=== PATIENT | male | born 1945 | race Caucasian/White ===

== ENCOUNTER 2017-02-25 22:48 | Emergency (ER) | payer BC, OTHER ==
--- NOTE | 2017-02-25 23:30 | EDPHY ---
H & P Stated Complaint: wants BP checked; hypertensive at home HPI/ROS: HPI CHIEF COMPLAINT: Hypertension HISTORY OF PRESENT ILLNESS: This patient very pleasant 71-year-old male, significant past medical history for hypertension just recently went up on his Coreg to 12.5 twice daily, additionally he takes HCTZ. Being followed by his primary care doctor for hypertension and additionally he was recently diagnosis with an enlarging thoracic aortic aneurysm of 4.8 cm. He is due to follow up with Cardiothoracic surgery later this month. He presents to the emergency room stating that he feels like his blood pressure is high. He noticed at 10: 00 p.m. tonight while he was trying to go to sleep. He has sensation in his chest that feels like palpitations. He denies chest pain or shortness of breath. Denies pleuritic pain. Denies dull ache or pressure. Denies arm numbness or tingling. Denies neck pain or back pain. Was lying in bed and felt some palpitations in his chest went downstairs to take his blood pressure and got a high reading at home decided come the emergency room. He reports to me otherwise he feels well. He denies chest pain or shortness of breath. Denies headache. Denies focal weakness numbness or tingling. Past Medical History: Hypertension, being followed for thoracic aortic aneurysm Past Surgical History: Hernia repair Social History: Denies daily use drugs alcohol tobacco. Family History: Noncontributory ROS REVIEW OF SYSTEMS: A comprehensive 10 point review of systems is otherwise negative aside from elements mentioned in the history of present illness. Exam Constitutional appears well nontoxic, anxious, triage nursing summary reviewed , vital signs reviewed, awake/alert. Vital signs noted at triage. Hypertensive. Eyes normal conjunctivae and sclera, EOMI, PERRLA. HENT normal inspection, atraumatic, moist mucus membranes, no epistaxis, neck supple/ no meningismus, no raccoon eyes. Respiratory clear to auscultation bilaterally, normal breath sounds, no respiratory distress, no wheezing. Cardiovascular no bruit. rate normal, regular rhythm, no murmur, no edema, distal pulses normal. Gastrointestinal soft, non-tender, no rebound, no guarding, normal bowel sounds, no distension, no pulsatile mass. Genitourinary no CVA tenderness. Musculoskeletal no midline vertebral tenderness, full range of motion, no calf swelling, no tenderness of extremities, no meningismus, good pulses, neurovascularly intact. Skin pink, warm, & dry, no rash, skin atraumatic. Neurologic awake, alert and oriented x 3, AAOx3, moves all 4 extremities equally, motor intact, sensory intact, CN II-XII intact, normal cerebellar, normal vision, normal speech. Psychiatric normal mood/affect. Heme/Lymph/Immune no lymphadenopathy. Differential Diagnosis: Includes but is not limited to in a particular order hypertensive urgency, hypertensive emergency, anxiety Medical Decision Making: Plan for this patient he otherwise appears well he does have hypertension here in emergency room. Decided after long discussion with him will obtain an EKG and basic blood work. And re-evaluate him with time and see if his blood pressure comes down. May have to give him an extra dose of blood pressure medication. I do believe thoracic aortic dissection is unlikely as he has no chest pain shortness of breath arm pain numbness or tingling or focal neck pain or weakness. Will obtain blood pressure in both arms. Re-evaluation: EKG interpretation by me on record in [employer] system. Impression time of EKG 0003 this is sinus rhythm rate of 55. Nonspecific T-wave abnormality seen in lead to [address] elevation or ST depression. 0107: Blood pressure 135/96. Lab work reviewed. Negative troponin. 0151AM: Repeat EKG time 1:34 a.m. this is sinus rhythm rate of 54 again seen nonspecific T-wave abnormalities in lead 3 and AVF. Flattening in lead 2. However no other acute ischemic changes. Unchanged from previous EKG this evening. This EKG is done when patient does not have any chest pain or shortness of breath. 0152: I did speak with Shantanu Ashraf the PA on-call for Dr. Digna Farnsworth. We went over this case in detail. Comfortable patient going home. Follow up with their office tomorrow. Additionally spoke with the patient understands return emergency room if develops chest pain shortness of breath or any further questions or concerns not feel well or spine and that his blood pressure is very high. Repeat troponin 2:22 a.m. negative. 0222: Re-evaluation resting comfortably no complaints up to use the bathroom without difficulty. Denies chest pain shortness of breath. Source: Patient - Personal History Current Tetanus/Diphtheria Vaccine: Yes - Medical/Surgical History Hx Asthma: No Hx Chronic Respiratory Disease: No Hx Diabetes: No Hx Cardiac Disease: No Hx Renal Disease: No Hx Cirrhosis: No Hx Alcoholism: No Hx HIV/AIDS: No Hx Splenectomy or Spleen Trauma: No Other PMH: PMHx: HTN, enlarged ascending aorta. PSHx: hernia repair, adenoids, tonsillectomy - Social History Smoking Status: Never smoked Constitutional: Initial Vital Signs Temperature (C) 36.7 C 02/25/17 22:51 Heart Rate 52 L 02/25/17 22:51 Respiratory Rate 16 02/25/17 22:51 Blood Pressure 175/99 H 02/25/17 22:51 O2 Sat (%) 92 02/25/17 22:51 O2 Delivery Mode Room Air Allergies/Adverse Reactions: hydrochlorothiazide [From Hyzaar] Allergy (Severe, Verified 12/28/09 10:03) UVULA SWELLING losartan potassium [From Hyzaar] Allergy (Severe, Verified 12/28/09 10:03) UVULA SWELLING Home Medications: Medication Instructions Recorded Welchol 02/25/17 ASPIRIN 02/25/17 Atorvastatin Calcium 02/25/17 Carvedilol 02/25/17 Ezetimibe 02/25/17 Fish Oil 1,000 mg Capsule 02/25/17 HCTZ (*) 02/25/17 VITAMIN D 02/25/17 Vitamin K 02/25/17 Medical Decision Making - Diagnostics Imaging Results: Imaging Impressions Chest X-Ray 02/25/17 23:51 Impression: Negative. - Data Points Laboratory Results: Laboratory Results 02/25/17 23:54 02/25/17 23:54 02/26/17 02/25/17 02/25/17 01:35 23:54 23:54 WBC RBC Hgb Hct MCV MCH MCHC RDW Plt Count MPV Neut % (Auto) Lymph % (Auto) [place] % (Auto) Eos % (Auto) Baso % (Auto) Nucleat RBC Rel Count Absolute Neuts (auto) Absolute Lymphs (auto) Absolute Monos (auto) Absolute Eos (auto) Absolute Basos (auto) Absolute Nucleated RBC Immature Gran % Immature Gran # D-Dimer < 0.27 ug/mLFEU ug/mLFEU (0.00-0.50) Sodium 141 mEq/L mEq/L (134-144) Potassium 3.9 mEq/L mEq/L (3.5-5.2) Chloride 104 mEq/L mEq/L (97-110) Carbon Dioxide 28 mEq/l mEq/l (22-31) Anion Gap 9 mEq/L mEq/L (8-16) BUN 17 mg/dL mg/dL (7-23) Creatinine 0.9 mg/dL mg/dL (0.7-1.3) Estimated GFR > 60 Glucose 91 mg/dL mg/dL (70-100) Calcium 9.4 mg/dL mg/dL (8.5-10.4) Troponin I < 0.012 ng/mL ng/mL < 0.012 ng/mL ng/mL (0.000-0.034) (0.000-0.034) NT-Pro-B Natriuret Pep 143 pg/mL H pg/mL (0-125) 02/25/17 23:54 WBC 5.33 10^3/uL 10^3/uL (3.80-9.50) RBC 4.64 10^6/uL 10^6/uL (4.40-6.38) Hgb 15.2 g/dL g/dL (13.7-17.5) Hct 42.3 % % (40.0-51.0) MCV 91.2 fL fL (81.5-99.8) MCH 32.8 pg pg (27.9-34.1) MCHC 35.9 g/dL g/dL (32.4-36.7) RDW 12.3 % % (11.5-15.2) Plt Count 216 10^3/uL 10^3/uL (150-400) MPV 9.3 fL fL (8.7-11.7) Neut % (Auto) 41.4 % % (39.3-74.2) Lymph % (Auto) 40.5 % % (15.0-45.0) [place] % (Auto) 14.3 % H % (4.5-13.0) Eos % (Auto) 3.2 % % (0.6-7.6) Baso % (Auto) 0.4 % % (0.3-1.7) Nucleat RBC Rel Count 0.0 % % (0.0-0.2) Absolute Neuts (auto) 2.21 10^3/uL 10^3/uL (1.70-6.50) Absolute Lymphs (auto) 2.16 10^3/uL 10^3/uL (1.00-3.00) Absolute Monos (auto) 0.76 10^3/uL 10^3/uL (0.30-0.80) Absolute Eos (auto) 0.17 10^3/uL 10^3/uL (0.03-0.40) Absolute Basos (auto) 0.02 10^3/uL 10^3/uL (0.02-0.10) Absolute Nucleated RBC 0.00 10^3/uL 10^3/uL (0-0.01) Immature Gran % 0.2 % % (0.0-1.1) Immature Gran # 0.01 10^3/uL 10^3/uL (0.00-0.10) D-Dimer Sodium Potassium Chloride Carbon Dioxide Anion Gap BUN Creatinine Estimated GFR Glucose Calcium Troponin I NT-Pro-B Natriuret Pep Medications Given: Discontinued Medications Sodium Chloride (Ns) 1,000 mls @ 0 mls/hr IV EDNOW ONE; Wide Open PRN Reason: Protocol Stop: 02/25/17 23:51 Last Admin: 02/26/17 00:02 Dose: 1,000 mls Departure - Departure Disposition: Home, Routine, Self-Care Clinical Impression: Hypertension Qualifiers: Hypertension type: unspecified Qualified Code(s): I10 - Essential (primary) hypertension Condition: Good Instructions: Hypertension (ED) Additional Instructions: 1. Follow up with your primary care doctor, call there tomorrow. 2. Return immediately to the emergency room if you develop worsening symptoms includes chest pain, shortness of breath, or if you find your blood pressure is very high. Referrals: Digna Hutchinson MD [Primary Care Provider] - As per Instructions
[2017-02-25] MEDS ORDERED: NS 1,000 ML IV ONE (23:50)
--- NOTE | 2017-02-26 00:05 | CPEKG ---
Heart Rate: 55 RR Interval: 1091 P-R Interval: 144 QRSD Interval: 94 QT Interval: 468 QTC Interval: 448 P [place]: 48 QRS [place]: -41 T Wave [place]: -21 EKG Severity - ABNORMAL ECG - EKG Impression: SINUS RHYTHM EKG Impression: LEFT AXIS DEVIATION EKG Impression: NONSPECIFIC T ABNORMALITIES, INFERIOR LEADS Electronically Signed By: Dominik Saucedo 26-Feb-2017 06:58:08
[2017-02-26 00:19] LABS: % IMMATURE GRANULYOCYTES 0.2 % (0.0-1.1); ABSOLUTE IMMATURE GRANULOCYTES 0.01 10^3/uL (0.00-0.10); ADD DIFF? NO; ADD MORPH? NO; ADD SCAN? NO; ATYPICAL LYMPHOCYTE FLAG 10 (0-99); FRAGMENT RBC FLAG 0 (0-99); HEMATOCRIT 42.3 % (40.0-51.0); HEMOGLOBIN 15.2 g/dL (13.7-17.5); LEFT SHIFT FLG 0 (0-99); LIPEMIA HEMOLYSIS FLAG 90 (0-99); MEAN CELL HEMOGLOBIN 32.8 pg (27.9-34.1); MEAN CELL HEMOGLOBIN CONCENTR. 35.9 g/dL (32.4-36.7); MEAN CELL VOLUME 91.2 fL (81.5-99.8); MEAN PLATELET VOLUME 9.3 fL (8.7-11.7); PLATELET CLUMPS FLAG 0 (0-99); PLATELET COUNT 216 10^3/uL (150-400); RED BLOOD CELL COUNT 4.64 10^6/uL (4.40-6.38); RED CELL DISTRIBUTION WIDTH 12.3 % (11.5-15.2)
[2017-02-26 00:32] LABS: ANION GAP 9 mEq/L (8-16); CALCIUM 9.4 mg/dL (8.5-10.4); CARBON DIOXIDE 28 mEq/l (22-31); CHLORIDE 104 mEq/L (97-110); CREATININE 0.9 mg/dL (0.7-1.3); GLOMERULAR FILTRATION RATE > 60; GLUCOSE 91 mg/dL (70-100); POTASSIUM 3.9 mEq/L (3.5-5.2); SODIUM 141 mEq/L (134-144)
[2017-02-26 00:42] LABS: TROPONIN I < 0.012 ng/mL (0.000-0.034)
--- NOTE | 2017-02-26 01:36 | CPEKG ---
Heart Rate: 54 RR Interval: 1111 P-R Interval: 152 QRSD Interval: 90 QT Interval: 464 QTC Interval: 440 P [place]: 51 QRS [place]: -42 T Wave [place]: -43 EKG Severity - ABNORMAL ECG - EKG Impression: SINUS RHYTHM EKG Impression: LEFT AXIS DEVIATION EKG Impression: NONSPECIFIC T ABNORMALITIES, INFERIOR LEADS Electronically Signed By: Dominik Saucedo 26-Feb-2017 06:58:08
[2017-02-26 02:52] VITALS: BP 152/111; PULSE 53; RESP 18; TEMP 98.2; O2SAT 94
== END 2017-02-26 02:51 | disposition home or self-care (01) ==
DX: I10 Essential (primary) hypertension (principal); E86.9 Volume depletion, unspecified; Z79.82 Long term (current) use of aspirin

== ENCOUNTER → 2017-03-06 | Outpatient (CLI) | payer OTHER, BC | LOC: BHFA 15:30 | PROVIDERS: ATTEND Internal Medicine Cardiovascular Disease | DX: I71.9 Aortic aneurysm of unspecified site, without rupture (principal) ==

== ENCOUNTER → 2017-03-06 | Outpatient (CLI) | payer BC, OTHER ==
[~2017-03-06] MED LIST: IOPAMIDOL (ISOVUE 370) 100 ML BTL IV ONE
== END ==
LOC: EEVIPCON 13:37 → FIMAGING 13:37
PROVIDERS: ATTEND Thoracic Surgery (Cardiothoracic Vascular Surgery)
DX: I71.9 Aortic aneurysm of unspecified site, without rupture (principal)
CPT/HCPCS: Q9967

== ENCOUNTER 2017-05-15 07:38 | Inpatient (IN) | payer OTHER, BC ==
[2017-05-15] MEDS ORDERED: NS 1,000 ML IV ONE (07:44)
[2017-05-15] MEDS ORDERED: ASPIRIN EC 325 MG TAB PO ONE ×2 (07:44→08:01)
[2017-05-15] MEDS ORDERED: DIAZEPAM 5 MG TAB PO ONE (07:44)
[2017-05-15] MEDS ORDERED: diphenhydrAMINE 25 MG CAP PO ONE ×2 (07:44→08:00)
[2017-05-15] MEDS ORDERED: FAMOTIDINE 20 MG TAB PO ONE (07:44)
[2017-05-15] MEDS ORDERED: FAMOTIDINE 20 MG TAB ONE (08:00)
[2017-05-15] MEDS ORDERED: DIAZEPAM 5 MG TAB ONE (08:01)
--- NOTE | 2017-05-15 08:08 | CPEKG ---
Heart Rate: 56 RR Interval: 1071 P-R Interval: 140 QRSD Interval: 84 QT Interval: 432 QTC Interval: 417 P [place]: 54 QRS [place]: -46 T Wave [place]: -17 EKG Severity - ABNORMAL ECG - EKG Impression: SINUS RHYTHM EKG Impression: LAD, CONSIDER LEFT ANTERIOR FASCICULAR BLOCK EKG Impression: BORDERLINE T ABNORMALITIES, INFERIOR LEADS Electronically Signed By: Shantanu Gonzalez 17-May-2017 12:29:14
[2017-05-15 08:30] LABS: PLATELET COUNT 210 10^3/uL (150-400)
[2017-05-15 08:41] LABS: INR 1.04 (0.83-1.16); PROTIME(PATIENT) 13.8 SEC (12.0-15.0)
[2017-05-15] MEDS ORDERED: MIDAZOLAM 2 MG/2 ML VIAL ONE (08:53)
[2017-05-15] MEDS ORDERED: HEPARIN 10,000 UNIT/10 ML MDV (1,000 UNIT/ML) ONE (08:53)
[2017-05-15] MEDS ORDERED: fentaNYL 100 MCG/2 ML INJ ONE (08:53)
[2017-05-15] MEDS ORDERED: LIDOCAINE 1% 300 MG/30 ML SDV ONE (08:53)
[2017-05-15] MEDS ORDERED: VERAPAMIL 5 MG/2 ML VIAL ONE (08:53)
[2017-05-15] MEDS ORDERED: IOPAMIDOL (ISOVUE-370) 150 ML BTL IV ONE (08:54)
--- NOTE | 2017-05-15 08:55 | PDPROPOC ---
Sedation Plan of Care Sedation Plan of Care: vital signs stable, mental status noted, patient educated of risks, benefits, alternatives, patient can tolerate sedation ASA Classification: ASA 2 Planned drugs: fentanyl, midazolam Mallampati Score: Class 1 Mallampati Reference Image: Patient passed 3-3-2 rule?: Yes
--- NOTE | 2017-05-15 08:56 | PDHPUP ---
History & Physical Update H&P update statement: This history and physical update is based on an assessment of the patient which was completed after admission or registration (within 24 hours), but prior to the surgery/procedure. H&P update: H&P reviewed & patient examined, no change in patient's condition since H&P completed
--- NOTE | 2017-05-15 09:17 | PDGENHP ---
History & Physical Chief Complaint: Preop History of Present Illness: 71-year-old male here in preoperative assessment for thoracic aortic aneurysm repair. Request for coronary assessment. Pertinent Past, Social, Family History: None Relevant Physical Exam: Well-nourished well-developed male. No JVP. Chest clear to auscultation percussion. Cardiac exam revealed a regular rate and rhythm with a 2/6 systolic murmur. Radial pulses were +2 and equal negative Edgar's test. Extremities revealed no edema. Cardiorespiratory Assessment: No contraindications to proceeding with cardiac catheterization identified today. Procedure to be performed is diagnostic only for assessment prior to surgery. Risks and benefits were discussed with the patient his and daughter. Will proceed.
--- NOTE | 2017-05-15 10:11 | PDDXCAT ---
Diagnostic Cath Note - . Date: 05/15/17 Entrance Guard: Sanju Indication: other (Preoperative thoracic aortic aneurysm repair) - Procedure Access: left wrist Procedure: left heart catheterization, coronary angiography, left ventriculogram - Materials Left Heart Cath size: 5F Left Heart Cath materials: JL4.5, JR4.0, pigtail - Findings-Left Heart Catheterization LM: Unobstructed LAD: Luminal irregularities: Unobstructed LCX: Luminal irregularities: Unobstructed RCA: Dominant: Luminal irregularities unobstructed EDP: 13 mm of mercury LVEF: 65 with aortic root dilatation Wall motion: Normal Complications: None Estimated blood loss: <50ml Closure method: TR Band Assessment: Contrast: 100 cc. Radiation 89 mGy. Versed 3 mg, fentanyl 75 mcg. Conclusions: Mild nonobstructive atherosclerotic cardiovascular disease. Normal LV systolic function. Thoracic aortic aneurysm. Plan: Surgical repair.
[2017-05-15] MEDS ORDERED: ATROPINE SULFATE 1 MG/10 ML SYR IVP PRN (10:12)
[2017-05-15] MEDS ORDERED: NITROGLYCERIN 0.4 MG BTL SL PRN (10:12)
--- NOTE | 2017-05-15 12:52 | PDGENHP ---
History and Physical - Chief Complaint asc ao aneurysm 4.8 cm - History of Present Illness 71 with asc ao aneurysm of 4.8 cm, mild AI, and normal LVEF, admitted in advance of repair for risk stratification. LHC was completed today which revealed non-obstructive CAD. Pt denies weakness, pre-syncope, syncope, CP, chest palpitations, SOB, abdominal pain, or LE edema. History Information - Allergies/Home Medication List Allergies/Adverse Reactions: lisinopril Allergy (Verified 04/22/17 10:13) cough losartan potassium [From Hyzaar] Allergy (Verified 04/22/17 10:13) UVULA SWELLING Home Medications: Amlodipine Besylate [Norvasc] 5 mg PO DAILY 05/11/17 [Last Taken 05/14/17 08:00] Aspirin EC [Aspirin EC 81 mg (*)] 81 mg PO DAILY 05/11/17 [Last Taken 05/14/17 08:00] Atorvastatin Calcium [Lipitor 10 mg (*)] 10 mg PO DAILY 05/11/17 [Last Taken 09/23 21:00] Carvedilol [Coreg (*)] 25 mg PO BIDMEAL 05/11/17 [Last Taken 05/14/17 21:00] Colesevelam HCl [Welchol (*)] 1,875 mg PO BIDMEAL 05/11/17 [Last Taken 05/14/17 21:00] Ezetimibe [Ezetimibe] 10 mg PO DAILY 05/11/17 [Last Taken 05/14/17 08:00] Herbals/Supplements -Info Only 1 ea PO DAILY 05/11/17 [Last Taken 05/08/17 08:00 ] Hydrochlorothiazide [HCTZ (*)] 25 mg PO DAILY 05/11/17 [Last Taken 05/14/17 08: 00] I have personally reviewed and updated: family history, medical history, social history, surgical history - Past Medical History hypertension, hyperlipidemia - Surgical History Reports: no pertinent surgical hx - Social History Smoking Status: Never smoked Alcohol Use: Rarely Drug Use: None Review of Systems Review of Systems: ROS: 2-9 pt reviewed & negative except for what was stated in HPI & below Physical Exam Physical Exam: Constitutional: no apparent distress, appears nourished, not in pain Eyes: anicteric sclera Ears, Nose, Mouth, Throat: moist mucous membranes, hearing normal Cardiovascular: no murmur, rub, or gallop Respiratory: no respiratory distress, no rales or rhonchi, clear to auscultation Gastrointestinal: soft, non-tender abdomen Genitourinary: no bladder tenderness Skin: warm, normal color Musculoskeletal: full muscle strength Neurologic: AAOx3, sensation intact bilaterally Psychiatric: interacting appropriately, not anxious, not encephalopathic, thought process linear Lab Data & Imaging Review 05/15/17 08:00 05/15/17 08:00 WBC 4.77 10^3/uL (3.80-9.50) 05/15/17 08:00 RBC 4.75 10^6/uL (4.40-6.38) 05/15/17 08:00 Hgb 15.3 g/dL (13.7-17.5) 05/15/17 08:00 Hct 43.0 % (40.0-51.0) 05/15/17 08:00 MCV 90.5 fL (81.5-99.8) 05/15/17 08:00 MCH 32.2 pg (27.9-34.1) 05/15/17 08:00 MCHC 35.6 g/dL (32.4-36.7) 05/15/17 08:00 RDW 12.0 % (11.5-15.2) 05/15/17 08:00 Plt Count 210 10^3/uL (150-400) 05/15/17 08:00 MPV 9.5 fL (8.7-11.7) 05/15/17 08:00 Neut % (Auto) 54.3 % (39.3-74.2) 05/15/17 08:00 Lymph % (Auto) 27.9 % (15.0-45.0) 05/15/17 08:00 [place] % (Auto) 14.3 % (4.5-13.0) H 05/15/17 08:00 Eos % (Auto) 2.1 % (0.6-7.6) 05/15/17 08:00 Baso % (Auto) 0.8 % (0.3-1.7) 05/15/17 08:00 Nucleat RBC Rel Count 0.0 % (0.0-0.2) 05/15/17 08:00 Absolute Neuts (auto) 2.59 10^3/uL (1.70-6.50) 05/15/17 08:00 Absolute Lymphs (auto) 1.33 10^3/uL (1.00-3.00) 05/15/17 08:00 Absolute Monos (auto) 0.68 10^3/uL (0.30-0.80) 05/15/17 08:00 Absolute Eos (auto) 0.10 10^3/uL (0.03-0.40) 05/15/17 08:00 Absolute Basos (auto) 0.04 10^3/uL (0.02-0.10) 05/15/17 08:00 Absolute Nucleated RBC 0.00 10^3/uL (0-0.01) 05/15/17 08:00 Immature Gran % 0.6 % (0.0-1.1) 05/15/17 08:00 Immature Gran # 0.03 10^3/uL (0.00-0.10) 05/15/17 08:00 PT 13.8 SEC (12.0-15.0) 05/15/17 08:00 INR 1.04 (0.83-1.16) 05/15/17 08:00 Sodium 140 mEq/L (135-145) 05/15/17 08:00 Potassium 4.2 mEq/L (3.5-5.2) 05/15/17 08:00 Chloride 103 mEq/L (97-110) 05/15/17 08:00 Carbon Dioxide 27 mEq/l (22-31) 05/15/17 08:00 Anion Gap 10 mEq/L (8-16) 05/15/17 08:00 BUN 14 mg/dL (7-23) 05/15/17 08:00 Creatinine 0.9 mg/dL (0.7-1.3) 05/15/17 08:00 Estimated GFR > 60 05/15/17 08:00 Glucose 90 mg/dL (70-100) 05/15/17 08:00 Calcium 9.8 mg/dL (8.5-10.4) 05/15/17 08:00 Magnesium 2.0 mg/dL (1.6-2.3) 05/15/17 08:00 Triglycerides 119 mg/dL (40-150) 05/15/17 08:00 Cholesterol 151 mg/dL (140-220) 05/15/17 08:00 Cholesterol Risk Factr 0.4 (0.2-1.0) 05/15/17 08:00 LDL Cholesterol, Calc 62 mg/dL (80-100) L 05/15/17 08:00 LDL Risk Factor 0.5 (0.2-1.0) 05/15/17 08:00 VLDL Cholesterol 23 mg/dL (8-25) 05/15/17 08:00 Non-HDL Cholesterol 85 mg/dL (90-129) L 05/15/17 08:00 HDL Cholesterol 66 mg/dL (40-65) H 05/15/17 08:00 LDL/HDL Ratio 0.94 RATIO (1.00-3.64) L 05/15/17 08:00 Cholesterol/HDL Ratio 2.29 RATIO (1.00-4.97) 05/15/17 08:00 Patient ABO/Rh B POSITIVE 05/15/17 08:00 Antibody Screen NEGATIVE 05/15/17 08:00 Visualized and Interpreted Chest x-ray results: Yes Chest X-Ray results: no infiltrate, normal heart size, other (tortuous thoracic aorta) Visualized and Interpreted EKG results: Yes EKG Interpretation: Positive for: normal sinsus rhythm Assessment & Plan Assessment: 71M with asc ao aneurysm of 4.8 cm Plan: aneurysm repair 05/16
[2017-05-15] MEDS: CARVEDILOL 25 MG TAB PO SCH (18:05)
[2017-05-15] MEDS: COLESEVELAM HCL 625 MG TAB PO SCH (18:05)
[2017-05-15] MEDS ORDERED: CHLORHEXIDINE GLUC HIBICLENS 118 ML BTL TP ONE (19:34)
[2017-05-16] MEDS ORDERED: PHENYLEPHRINE HCL 50 MG in NS 250 ML IV ONE (06:00)
[2017-05-16] MEDS ORDERED: LIDOCAINE 1% 5 ML SDV ID PRN (06:00)
[2017-05-16] MEDS ORDERED: SODIUM BICARBONATE 20 MEQ, LIDOCAINE 1% 10 ML in NORMOSOL-R 1,000 ML MISC ONE (06:00)
[2017-05-16] MEDS ORDERED: MANNITOL 25% 12.5 GM/50 ML VIAL IVP ONE (06:00)
[2017-05-16] MEDS ORDERED: CITRATE DEXTROSE SOLN 500 ML BAG MISC ONE (06:00)
[2017-05-16] MEDS ORDERED: INSULIN REGULAR HUMAN 100 UNIT in NS 100 ML IV ONE (06:00)
[2017-05-16] MEDS ORDERED: NOREPINEPHRINE BITARTRATE 16 MG in NS 250 ML IV ONE (06:00)
[2017-05-16] MEDS ORDERED: MUPIROCIN 2% 22 GM OINT NS ONE (06:00)
[2017-05-16] MEDS ORDERED: CHLORHEXIDINE GLUC HIBICLENS 118 ML BTL TP SCH (06:00)
[2017-05-16] MEDS ORDERED: ceFAZolin 2 GM/SWFI 2 GM/20 ML SYR IVP ONE (06:00)
[2017-05-16] MEDS ORDERED: niCARdipine/NACL 200 ML IV SCH (06:00)
[2017-05-16] MEDS ORDERED: TRANEXAMIC ACID 1,000 MG in NS (SYRINGE) 50 ML IV ONE (06:00)
[2017-05-16] MEDS ORDERED: PROTAMINE SULFATE 50 MG/5 ML VIAL IVP ONE (06:32)
[2017-05-16] MEDS ORDERED: CALCIUM CHLORIDE 1 GM/10 ML INJ ONE ×3 (06:33→11:01)
[2017-05-16] MEDS ORDERED: MILRINONE/DEXTROSE/100 ML BAG IV ONE (06:33)
[2017-05-16] MEDS ORDERED: ALBUMIN 5% 250 ML BOTTLE IV ONE (06:33)
[2017-05-16] MEDS ORDERED: HEPARIN 10,000 UNIT/10 ML MDV (1,000 UNIT/ML) ONE (06:33)
[2017-05-16] MEDS ORDERED: LIDOCAINE 2% 100 MG/5 ML SYR ONE ×2 (06:33→08:22)
[2017-05-16] MEDS ORDERED: NA BICARBONATE 50 MEQ/50 ML VIAL ONE (06:33)
[2017-05-16] MEDS ORDERED: methylPREDNISolone SOD SUCC 1 GM/8 ML VIAL ONE (06:34)
[2017-05-16] MEDS ORDERED: MAGNESIUM SULFATE 1 GM/2 ML VIAL ONE (06:34)
[2017-05-16] MEDS ORDERED: ADENOSINE 6 MG/2 ML VIAL ONE (06:34)
[2017-05-16] MEDS ORDERED: DOPamine/DEXTROSE/250 ML BAG IV ONE (06:34)
[2017-05-16] MEDS ORDERED: CITRATE DEXTROSE SOLN 500 ML BAG ONE (06:34)
[2017-05-16] MEDS ORDERED: niCARdipine/NACL/200 ML BAG IV ONE (06:34)
[2017-05-16] MEDS ORDERED: AMIODARONE HCL 150 MG/3 ML VIAL ONE (06:34)
[2017-05-16] MEDS ORDERED: ceFAZolin 1 GM VIAL ONE (06:34)
[2017-05-16] MEDS ORDERED: LR 1,000 ML IV ONE (06:38)
[2017-05-16] MEDS ORDERED: MIDAZOLAM 2 MG/2 ML VIAL IVP ONE (07:20)
[2017-05-16] MEDS ORDERED: MINERAL OIL 10 ML VIAL ONE (07:21)
--- NOTE | 2017-05-16 08:04 | PDANEPAE ---
ANE History of Present Illness Ascending Aortic Aneurism Repair s/f repair ANE Past Medical History - Cardiovascular History Hx Hypertension: Yes Hx Arrhythmias: No Hx Chest Pain: No Hx Coronary Artery / Peripheral Vascular Disease: No Hx CHF / Valvular Disease: Yes Hx Palpitations: No Cardiovascular History Comment: htn. hyperlipidemia. AAA. mild AI - Pulmonary History Hx COPD: No Hx Asthma/Reactive Airway Disease: No Hx Recent Upper Respiratory Infection: No Hx Oxygen in Use at Home: No Hx Sleep Apnea: Yes Sleep Apnea Screening Result - Last Documented: Positive Pulmonary History Comment: mild ulises- doesn't use any devices - Neurologic History Hx Cerebrovascular Accident: No Hx Seizures: No Hx Dementia: No - Endocrine History Hx Diabetes: No - Renal History Hx Renal Disorders: No - Liver History Hx Hepatic Disorders: No - Neurological & Psychiatric Hx Hx Neurological and Psychiatric Disorders: No - Cancer History Hx Cancer: No - Congenital Disorder History Hx Congenital Disorders: No - GI History Hx Gastrointestinal Disorders: Yes Gastrointestinal History Comment: mild constipation at times - Other Health History Other Health History: wears reading glasses - Chronic Pain History Chronic Pain: No - Surgical History Prior Surgeries: 12/30/09 lap inguinal hernia repair with [facility]. T&A as child ANE Review of Systems Review of Systems: - Exercise capacity METS (RN): 4 METS ANE Patient History - Allergies Allergies/Adverse Reactions: lisinopril Allergy (Verified 05/16/17 06:30) cough losartan potassium [From Hyzaar] Allergy (Verified 05/16/17 06:30) UVULA SWELLING - Home Medications Home medications: home medication list seen and reviewed Home Medications: Amlodipine Besylate [Norvasc] 5 mg PO DAILY 05/11/17 [Last Taken 05/14/17 08:00] Aspirin EC [Aspirin EC 81 mg (*)] 81 mg PO DAILY 05/11/17 [Last Taken 05/14/17 08:00] Atorvastatin Calcium [Lipitor 10 mg (*)] 10 mg PO DAILY 05/11/17 [Last Taken 09/23 21:00] Carvedilol [Coreg (*)] 25 mg PO BIDMEAL 05/11/17 [Last Taken 05/14/17 21:00] Colesevelam HCl [Welchol (*)] 1,875 mg PO BIDMEAL 05/11/17 [Last Taken 05/14/17 21:00] Ezetimibe [Ezetimibe] 10 mg PO DAILY 05/11/17 [Last Taken 05/14/17 08:00] Herbals/Supplements -Info Only 1 ea PO DAILY 05/11/17 [Last Taken 05/08/17 08:00 ] Hydrochlorothiazide [HCTZ (*)] 25 mg PO DAILY 05/11/17 [Last Taken 05/14/17 08: 00] - NPO status NPO Status: no food or drink >8 hours NPO Since - Liquids (Date): 05/16/17 NPO Since - Liquids (Time): 00:00 NPO Since - Solids (Date): 05/16/17 NPO Since - Solids (Time): 00:00 - Anes Hx Anes Hx: post operative nausea and vomiting (with ether, none recent) - Smoking Hx Smoking Status: Never smoked - Alcohol Use Alcohol Use: Rarely - Family Anes Hx Family Hx Anesthesia Complications: none ANE Labs/Vital Signs - Labs Result Diagrams: 05/15/17 08:00 05/15/17 08:00 - Vital Signs Blood Pressure: 136/91 Heart Rate: 58 Respiratory Rate: 16 O2 Sat (%): 93 Height: 170 cm Weight: 80.8 kg ANE Physical Exam - Airway Mallampati Score: Class 3 Mouth exam: normal dental/mouth exam - Pulmonary Pulmonary: no respiratory distress - Cardiovascular Cardiovascular: regular rate and rhythym - ASA Status ASA Status: II ANE Anesthesia Plan Anesthesia Plan: general endotracheal anesthesia Lines/Monitors: arterial line, central line, ESAU
[2017-05-16] MEDS ORDERED: PHENYLEPHRINE HCL 100 MCG/ML SYR ONE (08:21)
[2017-05-16] MEDS ORDERED: MIDAZOLAM 2 MG/2 ML VIAL ONE (08:21)
[2017-05-16] MEDS ORDERED: REMIFENTANIL HCL 1 MG VIAL ONE (08:21)
[2017-05-16] MEDS ORDERED: PROPOFOL/EMULSION 500 MG/50 ML BOTTLE IV ONE (08:21)
[2017-05-16] MEDS ORDERED: fentaNYL 250 MCG/5 ML INJ ONE (08:21)
[2017-05-16] MEDS ORDERED: ROCURONIUM 100 MG/10 ML VIAL ONE (08:22)
[2017-05-16] MEDS ORDERED: LIDOCAINE HCL 160 MG/4 ML LTA KIT TP ONE (08:23)
[2017-05-16] MEDS: CARVEDILOL 25 MG TAB PO SCH (09:33)
[2017-05-16] MEDS ORDERED: DEXMEDETOMIDINE/NS 4MCG/ML 50 ML BTL IV ONE (09:36)
[2017-05-16] MEDS: COLESEVELAM HCL 625 MG TAB PO SCH (09:41)
[2017-05-16] MEDS ORDERED: fentaNYL 25 MCG PATCH TD SCH (09:45)
[2017-05-16] MEDS ORDERED: DEXAMETHASONE 4 MG/ML VIAL ONE ×2 (09:48)
[2017-05-16] MEDS ORDERED: KETOROLAC 30 MG/1 ML SDV ONE (09:48)
[2017-05-16] MEDS ORDERED: ONDANSETRON 4 MG/2 ML VIAL ONE (09:48)
[2017-05-16] MEDS ORDERED: SUGAMMADEX SODIUM 200 MG/2 ML VIAL IVP ONE (10:47)
[2017-05-16] MEDS ORDERED: DEXMEDETOMIDINE IN 0.9 % NACL 50 ML IV SCH (11:00)
[2017-05-16] MEDS ORDERED: MEPERIDINE 25 MG/ML SYR IVP PRN (11:19)
[2017-05-16] MEDS ORDERED: SODIUM CL NASAL 45 ML BTL EACHNARE PRN (11:19)
[2017-05-16] MEDS ORDERED: ONDANSETRON DISINTEGRATING 4 MG TAB PO PRN (11:19)
[2017-05-16] MEDS ORDERED: ACETAMINOPHEN 325 MG TAB PO PRN (11:19)
[2017-05-16] MEDS ORDERED: BISACODYL 10 MG SUPP PR PRN (11:19)
[2017-05-16] MEDS ORDERED: METOCLOPRAMIDE 10 MG/2 ML VIAL IVP PRN (11:19)
[2017-05-16] MEDS ORDERED: ACETAMINOPHEN 650 MG SUPP PR PRN (11:19)
[2017-05-16] MEDS ORDERED: CEPACOL LOZENGE PO PRN (11:19)
[2017-05-16] MEDS ORDERED: MAGNESIUM SULF 2 GM/WATER 50 ML IV ONE (11:19)
[2017-05-16] MEDS ORDERED: PANTOPRAZOLE SODIUM 40 MG VIAL IVP ONE (11:19)
[2017-05-16] MEDS ORDERED: D50W 25 GM/50 ML SYR IVP PRN (11:19)
[2017-05-16] MEDS ORDERED: LACTULOSE 20 GM/30 ML UDCUP PO PRN (11:19)
[2017-05-16] MEDS ORDERED: NS 1,000 ML IV SCH (11:30)
[2017-05-16] MEDS ORDERED: INSULIN REGULAR HUMAN 100 UNIT in NS 100 ML IV SCH (11:30)
[2017-05-16] MEDS ORDERED: HYDROGEN PEROXIDE 236 ML BOTTLE TP ONE (11:39)
[2017-05-16] MEDS: ALBUMIN 5% 250 ML IV PRN ×2 (12:00→12:50)
[2017-05-16] MEDS: ceFAZolin 2 GM/DEXTROSE 100 ML IV SCH ×2 (12:34→22:08)
[2017-05-16] MEDS: KETOROLAC 15 MG/1 ML SDV IVP SCH ×3 (12:34→23:53)
[2017-05-16] MEDS ORDERED: ALBUMIN 5% 500 ML BOTTLE IV ONE (12:56)
[2017-05-16] MEDS: fentaNYL 100 MCG/2 ML INJ IVP PRN (13:10)
[2017-05-16] MEDS ORDERED: ALBUMIN 5% 500 ML IV ONE (13:30)
[2017-05-16] MEDS: POTASSIUM Cl (KCl) 50 ML IV PRN ×4 (14:30→16:57)
[2017-05-16] MEDS: ONDANSETRON 4 MG/2 ML VIAL IVP PRN (17:38)
--- NOTE | 2017-05-16 21:29 | POSTANESTH ---
Post Anesthetic Evaluation Cardiovascular Status: Normal, Stable, Similar to Pre-Op Cond Respiratory Status: Tx Decrease in SpO2 (3l by NC) Level of Consciousness/Mental Status: Alert and Oriented, Mildly Sleepy, Arousable Pain Control: Adequate, Prn Tx Ordered Nausea/Vomiting Control: Adequate, Prn Tx Ordered Complications Possibly Related to Anesthesia: None Noted
[2017-05-16] MEDS: MUPIROCIN 2% 22 GM OINT NS SCH (22:10)
[2017-05-17] MEDS: fentaNYL 100 MCG/2 ML INJ IVP PRN (01:44)
[2017-05-17] MEDS: HYDROCODONE/APAP 5/325 TAB PO PRN ×3 (03:57→21:31)
[2017-05-17 04:10] LABS: PLATELET COUNT 119 10^3/uL (150-400)
[2017-05-17] MEDS: HEPARIN 5,000 UNIT/0.5 ML SYR SC SCH ×3 (06:14→21:12)
[2017-05-17] MEDS: KETOROLAC 15 MG/1 ML SDV IVP SCH ×3 (06:14→18:39)
[2017-05-17] MEDS: ceFAZolin 2 GM/DEXTROSE 100 ML IV SCH ×2 (06:14→14:44)
--- NOTE | 2017-05-17 06:40 | SOAPPROG ---
SOAP Progress Note Assessment/Plan: Assessment: POD#1 Ascending aortic replacement #28 hemashield graft, prophylactic AtriClip ligation left atrial appendage Aneurysmal ascending aorta - Replaced with a dacron interposition graft. Extubated in the OR. Hemodynamically stable early postop course. No vasoactive support, tachyarrhythmias, backup pacing or significant fluid overload. AF prophylaxis with BB as tolerated. Antithrombotic prophylaxis with ASA alone pending stability of rhythm. Acute expected blood loss anemia - Stable. No transfusions required. VTE prophylaxis with SQ hep. Plan: Routine POD#1 orders re drains, wires, lines, orals and mobility. Tx to PCU. 05/17/17 06:37 Subjective: Feels great. Minimal discomfort. No dizziness OOB. Thirsty. Looking forward to PT. Objective: Vital Signs Temp Pulse Resp BP Pulse Ox 36.6 C 70 21 H 123/84 H 97 05/16/17 20:00 05/17/17 06:00 05/17/17 06:00 05/17/17 06:00 05/17/17 06:00 Laboratory Results 05/17/17 04:00 05/17/17 04:00 05/16/17 05/17/17 05/18/17 05:59 05:59 05:59 Intake Total 1950 1830 Output Total 402 3095 Balance 1548 -1265 PT 13.8 SEC (12.0-15.0) 05/15/17 08:00 INR 1.04 (0.83-1.16) 05/15/17 08:00 No gtts. No tachycardia or backup pacing. MAPs > 70. Excellent sats on 3 lpm O2. CTOP dissipating. CXR -> No PTX, min pulm vasc congestion, bilateral basilar atelectasis. Adequate fluid balance. Labs as expected. Physical Exam - Physical Exam General Appearance: alert, no apparent distress Respiratory: lungs clear (grossly), other (blakes y-d to pleurovac, serosang drainage, no air leak) Cardiac/Chest: regular rate, rhythm, other (Sternotomy CDI. Vwires intact.) Abdomen: normal bowel sounds, non-tender, soft Skin: warm/dry Extremities: other (no visible edema) ICD10 Worksheet Patient Problems: Problems Problem Status Onset Acute blood loss anemia Acute Aneurysm of ascending aorta Acute S/P ascending aortic replacement Acute ~05/16/17
[2017-05-17] MEDS ORDERED: traMADol 50 MG TAB PO PRN (08:04)
[2017-05-17] MEDS: PANTOPRAZOLE SODIUM 40 MG TAB PO SCH (08:07)
[2017-05-17] MEDS: SENNOSIDES/DOCUSATE SODIUM TAB PO SCH ×2 (08:07→21:13)
[2017-05-17] MEDS: ASPIRIN EC 81 MG TAB PO SCH (08:07)
[2017-05-17] MEDS: MUPIROCIN 2% 22 GM OINT NS SCH ×2 (08:08→22:11)
[2017-05-17] MEDS: METOPROLOL TARTRATE 25 MG TAB PO SCH ×2 (10:44→21:13)
[2017-05-17] MEDS: ceFAZolin 2 GM/SWFI 2 GM/20 ML SYR IVP SCH ×2 (14:43→21:29)
--- NOTE | 2017-05-17 15:59 | ASMTCMCOM ---
CM Note CM Note Notes: 05/17/2017 Case management Note Reviewed chart and discussed with Dr. Margarette Etienne's PA. There are no anticipated case management d/c needs. PT is recommending home. Case Management d/c poc; home with follow up as directed. Case Management available if needs change. Date Signed: 05/17/2017 03:59 PM Electronically Signed By:Rosa Robins RN
[2017-05-17] MEDS ORDERED: SENNOSIDES/DOCUSATE SODIUM TAB PO SCH (21:00)
[2017-05-17] MEDS: IBUPROFEN 600 MG TAB PO PRN (21:31)
[2017-05-18] MEDS: HEPARIN 5,000 UNIT/0.5 ML SYR SC SCH (05:47)
[2017-05-18 06:04] LABS: PLATELET COUNT 95 10^3/uL (150-400)
--- NOTE | 2017-05-18 08:14 | SOAPPROG ---
SOAP Progress Note Assessment/Plan: Assessment: POD#2 Ascending aortic replacement #28 hemashield graft, prophylactic AtriClip ligation left atrial appendage Aneurysmal ascending aorta - Replaced with a dacron interposition graft. Extubated in the OR. Hemodynamically stable early postop course. No vasoactive support, tachyarrhythmias, backup pacing or significant fluid overload. AF prophylaxis with BB as tolerated. Antithrombotic prophylaxis with ASA alone pending stability of rhythm. Acute expected blood loss anemia - Stable. No transfusions required. VTE prophylaxis with SQ hep. Plan: Chest tubes and Vwires removed. D/C duragesic patch. Cont metop 12.5 mg BID. Switch scheduled toradol to prn ibuprofen. Cont inc activity as tolerated. Dispo - Anticipate home without services 05/18/17 08:12 Subjective: Euphoria of yest gone. Tired. Poor sleep. Intermittent nausea and sweats. Anticipating BM. Objective: Vital Signs Temp Pulse Resp BP Pulse Ox 36.9 C 67 16 115/76 97 05/18/17 04:00 05/18/17 04:00 05/18/17 04:00 05/18/17 04:00 05/18/17 04:00 Laboratory Results 05/18/17 05:50 05/18/17 05:50 05/17/17 05/18/17 05/19/17 05:59 05:59 05:59 Intake Total 1830 1775 Output Total 3095 1098 Balance -1265 677 PT 13.8 SEC (12.0-15.0) 05/15/17 08:00 INR 1.04 (0.83-1.16) 05/15/17 08:00 Holding SR and SBPs > 100. Stable suppl O2 req. Cont to autodiurese well. CTOP at removal criteria. Labs ok. Physical Exam - Physical Exam General Appearance: alert, no apparent distress Respiratory: crackles (coarse left sided), other (blakes x 2 to bulb suction, thin serosang drainage; both drains removed without incident) Cardiac/Chest: regular rate, rhythm, other (Sternotomy CDI. Vwires removed without difficulty.) Abdomen: non-tender, soft Skin: warm/dry Extremities: swelling (trace) ICD10 Worksheet Patient Problems: Problems Problem Status Onset Acute blood loss anemia Acute Aneurysm of ascending aorta Acute S/P ascending aortic replacement Acute ~02/08/18
[2017-05-18] MEDS: POLYETHYLENE GLYCOL 3350 17 GM PKT PO PRN (09:05)
[2017-05-18] MEDS: SENNOSIDES/DOCUSATE SODIUM TAB PO SCH ×2 (09:07→19:54)
[2017-05-18] MEDS: METOPROLOL TARTRATE 25 MG TAB PO SCH ×2 (09:07→19:55)
[2017-05-18] MEDS: PANTOPRAZOLE SODIUM 40 MG TAB PO SCH (09:08)
[2017-05-18] MEDS: IBUPROFEN 600 MG TAB PO PRN ×2 (09:08→20:33)
[2017-05-18] MEDS: ASPIRIN EC 81 MG TAB PO SCH (09:09)
[2017-05-18] MEDS: MUPIROCIN 2% 22 GM OINT NS SCH (10:24)
[2017-05-18] MEDS: ONDANSETRON 4 MG/2 ML VIAL IVP PRN ×2 (13:55→19:55)
[2017-05-18] MEDS: COLESEVELAM HCL 625 MG TAB PO SCH (19:55)
[2017-05-18] MEDS: TEMAZEPAM 15 MG CAP PO PRN (20:34)
[2017-05-19] MEDS: MAGNESIUM HYDROXIDE 30 ML UDCUP PO PRN (07:50)
[2017-05-19] MEDS: SENNOSIDES/DOCUSATE SODIUM TAB PO SCH ×2 (07:50→21:05)
[2017-05-19] MEDS: IBUPROFEN 600 MG TAB PO PRN ×2 (07:51→20:38)
[2017-05-19] MEDS: METOPROLOL TARTRATE 25 MG TAB PO SCH ×2 (07:52→21:05)
[2017-05-19] MEDS: ASPIRIN EC 81 MG TAB PO SCH (07:52)
[2017-05-19] MEDS: PANTOPRAZOLE SODIUM 40 MG TAB PO SCH (07:54)
[2017-05-19] MEDS: ATORVASTATIN CALCIUM 10 MG TAB PO SCH (07:55)
[2017-05-19] MEDS: EZETIMIBE 10 MG TAB PO SCH (07:55)
[2017-05-19] MEDS: COLESEVELAM HCL 625 MG TAB PO SCH ×2 (07:56→18:02)
--- NOTE | 2017-05-19 08:25 | SOAPPROG ---
SOAP Progress Note Assessment/Plan: Assessment: POD#3 Ascending aortic replacement #28 hemashield graft, prophylactic AtriClip ligation left atrial appendage Aneurysmal ascending aorta - Replaced with a dacron interposition graft. Extubated in the OR. Hemodynamically stable early postop course. No vasoactive support, tachyarrhythmias, backup pacing or significant fluid overload. AF prophylaxis with BB as tolerated. Antithrombotic prophylaxis with ASA alone pending stability of rhythm. Acute expected blood loss anemia - Stable. No transfusions required. VTE prophylaxis with SQ hep. Plan: Chest tubes and Vwires removed. D/C duragesic patch. Cont metop 12.5 mg BID. Switch scheduled toradol to prn ibuprofen. Cont inc activity as tolerated. Dispo - Anticipate home without services 05/19/17 08:25 Objective: Vital Signs Temp Pulse Resp BP Pulse Ox 36.6 C 77 16 105/69 97 05/19/17 07:53 05/19/17 07:53 05/19/17 07:53 05/19/17 07:53 05/19/17 07:53 Laboratory Results 05/18/17 05:50 05/18/17 05:50 05/18/17 05/19/17 05/20/17 05:59 05:59 05:59 Intake Total 1775 1570 Output Total 1098 1095 Balance 677 475 PT 13.8 SEC (12.0-15.0) 05/15/17 08:00 INR 1.04 (0.83-1.16) 05/15/17 08:00 ICD10 Worksheet Patient Problems: Problems Problem Status Onset Acute blood loss anemia Acute Aneurysm of ascending aorta Acute S/P ascending aortic replacement Acute ~05/16/17
--- NOTE | 2017-05-19 08:31 | SOAPPROG ---
SOAP Progress Note Assessment/Plan: Assessment: POD#3 Ascending aortic replacement #28 hemashield graft, prophylactic AtriClip ligation left atrial appendage Aneurysmal ascending aorta - Replaced with a dacron interposition graft. Extubated in the OR. Stable early postop course. Tubes and wires out. Adequately autodiuresing modest fluid overload. Tolerating low dose BB for AF prophylaxis. Antithrombotic prophylaxis with ASA alone pending stability of rhythm. Acute expected blood loss anemia - Stable. No transfusions required. VTE prophylaxis with SQ hep. Plan: Cont metop 12.5 mg BID. Wean O2. Cont inc activity as tolerated. Dispo - Anticipate home without services tomorrow. 05/19/17 08:25 Subjective: Feeling better. Productive afternoon yest. Good sleep with Restoril. Awaiting BM. Ready for home tomorrow. Objective: Vital Signs Temp Pulse Resp BP Pulse Ox 36.6 C 77 16 105/69 97 05/19/17 07:53 05/19/17 07:53 05/19/17 07:53 05/19/17 07:53 05/19/17 07:53 Laboratory Results 05/18/17 05:50 05/18/17 05:50 05/18/17 05/19/17 05/20/17 05:59 05:59 05:59 Intake Total 1775 1570 Output Total 1098 1095 Balance 677 475 PT 13.8 SEC (12.0-15.0) 05/15/17 08:00 INR 1.04 (0.83-1.16) 05/15/17 08:00 HR and BP controlled. Excellent sats on 2 lpm, likely could wean to RA or 1 lpm. Balanced I/Os. CXR -> tiny bilat pl eff, L>R - Pending Discharge Pending Discharge Within 24 Hours: Yes Pending Discharge Date: 05/20/17 Pending Discharge Time: 11:00 Physical Exam - Physical Exam General Appearance: alert, no apparent distress Respiratory: lungs clear (grossly), other (CT dressing CDI) Cardiac/Chest: regular rate, rhythm, other (Sternum grossly stable. Sternotomy CDI.) Abdomen: non-tender, soft Skin: warm/dry Extremities: other (no visible edema) ICD10 Worksheet Patient Problems: Problems Problem Status Onset Acute blood loss anemia Acute Aneurysm of ascending aorta Acute S/P ascending aortic replacement Acute ~05/16/17
[2017-05-19] MEDS ORDERED: METOPROLOL TARTRATE 25 MG TAB PO ONE (11:13)
[2017-05-19] MEDS: POLYETHYLENE GLYCOL 3350 17 GM PKT PO PRN (13:20)
--- NOTE | 2017-05-19 15:19 | ASMTCMCOM ---
CM Note CM Note Notes: Plan remains the same; pt to dc home with support of spouse & Outpatient Cardiac Rehab when medically stable. CM will follow if needs/changes. Date Signed: 05/19/2017 03:19 PM Electronically Signed By:Daniela Reilly RN
[2017-05-19] MEDS: HYDROCODONE/APAP 5/325 TAB PO PRN (20:38)
[2017-05-19] MEDS: TEMAZEPAM 15 MG CAP PO PRN (21:01)
[2017-05-20] MEDS: TEMAZEPAM 15 MG CAP PO PRN (03:08)
[2017-05-20] MEDS: IBUPROFEN 600 MG TAB PO PRN ×2 (03:08→10:20)
--- NOTE | 2017-05-20 07:42 | SOAPPROG ---
SOAP Progress Note Assessment/Plan: POD#3: Ascending aortic replacement #28 hemashield graft, prophylactic AtriClip ligation left atrial appendage Aneurysmal ascending aorta - BB for AF prophylaxis. Antithrombotic prophylaxis with ASA alone pending stability of rhythm. Acute expected blood loss anemia - Stable. No transfusions required. VTE prophylaxis with SQ hep. Disposition - home today without services Subjective: Still needs to have a BM. Denies pain/SOB. Ready to go home. Objective: Vital Signs Temp Pulse Resp BP Pulse Ox 36.9 C 69 16 100/68 93 05/20/17 07:31 05/20/17 07:31 05/20/17 07:31 05/20/17 07:31 05/20/17 07:31 Laboratory Results 05/20/17 03:15 05/20/17 03:15 05/19/17 05/20/17 05/21/17 05:59 05:59 05:59 Intake Total 1570 970 Output Total 1095 1150 Balance 475 -180 PT 13.8 SEC (12.0-15.0) 05/15/17 08:00 INR 1.04 (0.83-1.16) 05/15/17 08:00 Physical Exam - Physical Exam General Appearance: WD/WN, alert, no apparent distress EENT: No scleral icterus (R), No scleral icterus (L) Neck: normal inspection Respiratory: No respiratory distress Cardiac/Chest: regular rate, rhythm Abdomen: non-tender, soft, No distended Skin: normal color, warm/dry Extremities: No pedal edema Neuro/Psych: no motor/sensory deficits, alert, normal mood/affect, oriented x 3 ICD10 Worksheet Patient Problems: Problems Problem Status Onset Acute blood loss anemia Acute Aneurysm of ascending aorta Acute Postoperative atrial fibrillation Acute S/P ascending aortic replacement Acute ~05/16/17
[2017-05-20] MEDS: COLESEVELAM HCL 625 MG TAB PO SCH (08:24)
[2017-05-20] MEDS: EZETIMIBE 10 MG TAB PO SCH (08:24)
[2017-05-20] MEDS: ATORVASTATIN CALCIUM 10 MG TAB PO SCH (08:24)
[2017-05-20] MEDS: ASPIRIN EC 81 MG TAB PO SCH (08:24)
[2017-05-20] MEDS: METOPROLOL TARTRATE 25 MG TAB PO SCH (08:25)
[2017-05-20] MEDS: SENNOSIDES/DOCUSATE SODIUM TAB PO SCH (08:25)
[2017-05-20] MEDS: PANTOPRAZOLE SODIUM 40 MG TAB PO SCH (08:25)
[2017-05-20] MEDS ORDERED: MAGNESIUM CITRATE 300 ML BOTTLE PO ONE (08:40)
[2017-05-20 10:57] VITALS: BP 115/70; PULSE 73; RESP 12; TEMP 98.2; O2SAT 95
[2017-05-20] MEDS: MAGNESIUM HYDROXIDE 30 ML UDCUP PO PRN (10:59)
--- NOTE | 2017-05-20 11:17 | PDDCSUM ---
Discharge Summary Discharge Summary: ADMISSION DATE: 05/15/17 DISCHARGE DATE: 05/20/17 DISCHARGE DX: 1. Ascending aortic aneurysm 2. Acute blood loss anemia 3. Hypertension PROCEDURES 05/16/17, Davi Pfeiffer: Ascending aortic replacement with #28 graft, AtriClip [facility] COURSE BY PROBLEM LIST 1. Ascending aortic aneurysm - s/p replacement with #28 graft. Metoprolol started for atrial fibrillation prophylaxis. 2. Acute blood loss anemia - stable without the need for transfusions 3. Hypertension - Coreg, HCTZ, and Norvasc stopped due to low blood pressure. CONDITION Good DISPOSITION Home ACTIVITY Pt was instructed on sternal precautions, activity limitations, and which problems to call [facility] with. Please see Discharge Plan in chart for specifics. DISCHARGE MEDICATIONS Continue: 1. Aspirin EC [Aspirin EC 81 mg (*)] 81 mg PO DAILY 2. Atorvastatin Calcium [Lipitor 10 mg (*)] 10 mg PO DAILY 3. Colesevelam HCl [Welchol (*)] 1,875 mg PO BIDMEAL 4. Ezetimibe 10 mg PO DAILY 5. Herbals/Supplements -Info Only 1 ea PO DAILY New: 1. Acetaminophen [Tylenol 325mg (*)] 325 - 650 mg PO Q4HRS PRN 2. Hydrocodone/APAP 5/325 [[place] 5/325 (*)] 1 - 2 tab PO Q4HRS PRN 3. Ibuprofen [Motrin (*)] 600 mg PO Q6HRS PRN 4. Metoprolol Tartrate [Lopressor 25 mg (*)] 25 mg PO BID 5. Temazepam [Restoril 15 MG (*)] 15 mg PO HS PRN Stop: 1. Coreg 2. HCTZ 3. Norvasc PENDING STUDIES/LABS 1. CXR prior to follow-up F/U APPOINTMENTS 1. Davi Pfeiffer 05/28/17, 9:30 AM
== END 2017-05-20 13:27 | disposition home or self-care (01) | DRG 217 ==
LOC: FCATH 07:38 → F2W 09:52 → OBSVTOIN 09:52 → F2W 13:47 → F2N 05-16 06:45 → F2W 05-17 11:24
PROVIDERS: ADMIT Thoracic Surgery (Cardiothoracic Vascular Surgery); ATTEND Thoracic Surgery (Cardiothoracic Vascular Surgery)
PROC: B2111ZZ Fluoroscopy of Multiple Coronary Arteries using Low Osmolar Contrast (ICD-10-PCS; 2017-05-15)
PROC: B2151ZZ Fluoroscopy of Left Heart using Low Osmolar Contrast (ICD-10-PCS; 2017-05-15)
PROC: 4A023N7 Measurement of Cardiac Sampling and Pressure, Left Heart, Percutaneous Approach (ICD-10-PCS; 2017-05-15)
PROC: 02L70CK Occlusion of Left Atrial Appendage with Extraluminal Device, Open Approach (ICD-10-PCS; principal; 2017-05-16 08:00)
PROC: 02RX0JZ Replacement of Thoracic Aorta, Ascending/Arch with Synthetic Substitute, Open Approach (ICD-10-PCS; principal; 2017-05-16 08:00)
DX: I71.2 Thoracic aortic aneurysm, without rupture (principal); D62 Acute posthemorrhagic anemia; I10 Essential (primary) hypertension; E78.5 Hyperlipidemia, unspecified
CPT/HCPCS: 82947-QW; 97110-GP; 97116-GP; 97161-GP; 97166-GO; 97530-GP; 97535-GO; C1768; C1769; G8978-GP-CJ; G8979-GP-CI; G8987-GO-CJ; G8988-GO-CI; G8989-GO-CI; J0153; J0282; J0690; J1100; J1265; J1644; J1815; J1885; J2001; J2150; J2250; J2260; J2370; J2405; J2704; J2720; J2765; J2930; J3010; J3475; J3480; J7060; P9041; Q9967

== ENCOUNTER 2017-05-20 18:59 | Emergency (ER) | payer OTHER, BC ==
[2017-05-20 19:04] VITALS: RESP 18; TEMP 97.7
--- NOTE | 2017-05-20 19:58 | EDPHY ---
H & P Stated Complaint: requests O2 for home s/p open heart Time Seen by Provider: 05/20/17 19:19 HPI/ROS: CHIEF COMPLAINT: Needs home oxygen HISTORY OF PRESENT ILLNESS: Patient is a 71-year-old man who was discharged today after ascending aortic aneurysm repair with Dacron on the . He was discharged today after having a successful bowel movement. He had required oxygen occasionally throughout his stay for anemia attributed to blood loss. However this evening he was doing better and not requiring oxygen. [place] and once he got home his oxygen saturations were in the 70s. His daughter who is staying with him is an anesthesiologist. She called the cardiothoracic service who recommended he come here to be set up with outpatient oxygen. Patient denies feeling poorly. He denies cough shortness of breath or fevers. He denies any worsening of his pain. REVIEW OF SYSTEMS: Constitutional: denies: chills, fever, recent illness, recent injury EENTM: denies: blurred vision, double vision, nose congestion Respiratory: See HPI Cardiac: denies: chest pain, irregular heart rate, lightheadedness, palpitations Gastrointestinal/Abdominal: denies: abdominal pain, diarrhea, nausea, vomiting, blood streaked stools Genitourinary: denies: dysuria, frequency, hematuria, pain Musculoskeletal: denies: joint pain, muscle pain Skin: denies: lesions, rash, jaundice, bruising Neurological: denies: headache, numbness, paresthesia, tingling, dizziness, weakness Hematologic/Lymphatic: denies: blood clots, easy bleeding, easy bruising Immunologic/allergic: denies: HIV/AIDS, transplant EXAM: GENERAL: Well-appearing, well-nourished and in no acute distress. HEAD: Atraumatic, normocephalic. EYES: Pupils equal round and reactive to light, extraocular movements intact, sclera anicteric, conjunctiva are normal. ENT: TMs normal, nares patent, oropharynx clear without exudates. Moist mucous membranes. NECK: Normal range of motion, supple without lymphadenopathy or JVD. LUNGS: Breath sounds clear to auscultation bilaterally and equal. No wheezes rales or rhonchi. HEART: Regular rate and rhythm without murmurs, rubs or gallops. ABDOMEN: Soft, nontender, normoactive bowel sounds. No guarding, no rebound. No masses appreciated. BACK: No CVA tenderness, no spinal tenderness, step-offs or deformities EXTREMITIES: Normal range of motion, no pitting or edema. No clubbing or cyanosis. NEUROLOGICAL: Cranial nerves II through XII grossly intact. Normal speech, normal gait. 5/5 strength, normal movement in all extremities, normal sensation PSYCH: Normal mood, normal affect. SKIN: Warm, dry, normal turgor, no visible rashes or lesions. Source: Patient Exam Limitations: No limitations - Medical/Surgical History Hx Asthma: No Hx Chronic Respiratory Disease: No Hx Diabetes: No Hx Cardiac Disease: No Hx Renal Disease: No Hx Cirrhosis: No Hx Alcoholism: No Hx HIV/AIDS: No Hx Splenectomy or Spleen Trauma: No Other PMH: PMHx: HTN, enlarged ascending aorta. PSHx: hernia repair, adenoids, tonsillectomy - Family History Significant Family History: No pertinent family hx - Social History Smoking Status: Never smoked Alcohol Use: Sober Constitutional: Initial Vital Signs Temperature (C) 36.5 C 05/20/17 19:02 Heart Rate 81 05/20/17 19:02 Respiratory Rate 18 05/20/17 19:02 Blood Pressure 133/78 H 05/20/17 19:02 O2 Sat (%) 90 L 05/20/17 19:02 O2 Delivery Mode Nasal Cannula O2 (L/minute) 2 Allergies/Adverse Reactions: lisinopril Allergy (Verified 05/16/17 06:30) cough losartan potassium [From Hyzaar] Allergy (Verified 05/16/17 06:30) UVULA SWELLING Home Medications: Medication Instructions Recorded Aspirin EC [Aspirin EC 81 mg (*)] 81 mg PO DAILY 05/11/17 Atorvastatin Calcium [Lipitor 10 10 mg PO DAILY 05/11/17 mg (*)] Colesevelam HCl [Welchol (*)] 1,875 mg PO BIDMEAL 05/11/17 Ezetimibe 10 mg PO DAILY 05/11/17 Herbals/Supplements -Info Only 1 ea PO DAILY 05/11/17 Acetaminophen [Tylenol 325mg (*)] 325 - 650 mg PO Q4HRS PRN tab 05/20/17 Hydrocodone/APAP 5/325 [[place] 1 - 2 tab PO Q4HRS PRN #30 tab 05/20/17 5/325 (*)] Ibuprofen [Motrin (*)] 600 mg PO Q6HRS PRN tab 05/20/17 Magnesium Citrate [Magnesium 300 ml PO ONCE #1 bottle 05/20/17 Citrate 300 ml (*)] Metoprolol Tartrate [Lopressor 25 25 mg PO BID #60 tab 05/20/17 mg (*)] Temazepam [Restoril 15 MG (*)] 15 mg PO HS PRN #15 cap 05/20/17 Medical Decision Making ED Course/Re-evaluation: Patient wishes only to be set up with oxygen at home. He refuses to stay in the hospital and states that he would rather go to the care home and steal someone else's oxygen. He does not have symptoms consistent with pneumonia. He has not had leg pain or swelling. He and his daughter not concerned for PE. Had case management talk with them and RT. They will likely have to pay out- of-pocket for oxygen tonight which several in to do and follow up with his primary. 8:20 p.m. I was able to order oxygen through [facility]. Patient and family are happy with this. The adamantly refuse observation, workup or admission. We discussed indications for returning. Differential Diagnosis: Partial list of the Differential diagnosis considered include but were not limited to; hypoxia, anemia and although unlikely based on the history and physical exam, I also considered pneumonia, PE, pleural effusion, pericardial effusion. I discussed these differential diagnoses and the plan with the patient as well as the usual and expected course. The patient understands that the diagnosis is provisional and that in medicine we are not always correct and that further workup is often warranted. Usual and customary warnings were given. All of the patient's questions were answered. The patient was instructed to return to the emergency department should the symptoms at all worsen or return, otherwise to followup with the physician as we discussed. Departure - Departure Disposition: Home, Routine, Self-Care Clinical Impression: Hypoxia, Acute blood loss anemia Condition: Fair Referrals: Digna Hutchinson MD [Primary Care Provider] - As per Instructions
--- NOTE | 2017-05-20 20:16 | PDHOMEO2F ---
Home Oxygen Face to Face Home Orders: I certify that a physician or a nurse practitioner or physician's malt specifications control assistant has had a [id number] encounter with this patient on the date of this order due to the diagnosis listed, which relates to the primary reason the patient requires home oxygen. Alternative treatments have been tried, or considered, and deemed ineffective. It is anticipated that supplemental oxygen will result in improvement with treatment. Home oxygen qualifying diagnosis: Hypoxia SpO2 on room air (%): 87 Frequency of home oxygen needed: continuous Home oxygen liters per minute: 2 Home oxygen delivery device: nasal cannula Concentrator: Yes E-tanks for mobility and back up: Yes If ordering portable O2, is the patient mobile in the home?: Yes I certify that, based on these findings, the home oxygen is medically necessary for this patient for the following length of time. Length of time home oxygen needed: 1 month
[2017-05-20 20:34] VITALS: BP 113/74; PULSE 70; O2SAT 95
== END 2017-05-20 20:52 | disposition home or self-care (01) ==
DX: R09.02 Hypoxemia (principal); D62 Acute posthemorrhagic anemia; I10 Essential (primary) hypertension; Z79.82 Long term (current) use of aspirin

== ENCOUNTER → 2017-05-27 | Outpatient (CLI) | payer OTHER, BC | LOC: FIMAGING 13:23 | PROVIDERS: ATTEND Thoracic Surgery (Cardiothoracic Vascular Surgery) | DX: Z98.890 Other specified postprocedural states (principal); J90 Pleural effusion, not elsewhere classified ==